=== PATIENT | female | born 2000 | race African-American/Black ===

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

== ENCOUNTER 2018-05-19 11:34 | Inpatient (IN) ==
[2018-05-19] MEDS ORDERED: LACTATED RINGERS 250 ML IV ONE (12:35)
[2018-05-19] MEDS ORDERED: ONDANSETRON 4 MG/2 ML VIAL IV PRN ×2 (12:35→14:59)
[2018-05-19] MEDS ORDERED: CITRIC ACID/SODIUM CITRATE 30 ML UDCUP PO ONE (12:39)
[2018-05-19 12:58] LABS: Basophils % 0.3 % (0.0-0.8); Eosinophils % 0.5 % (0.00-10.9); Hematocrit 27.6 VOL% (35.7-47.0); Hemoglobin 8.3 GM/DL (12.0-16.0); Immature Granulocytes Absolute 0.06 #; Lymphocytes # 1.4 10*3/uL (1.4-4.0); Lymphocytes % 22.9 % (21.3-54.2); Mean Corpuscular HGB Conc 30.1 GM/DL (32-36); Mean Corpuscular Hemoglobin 25 PG (27-34); Mean Corpuscular Volume 81.4 FL (87-102); Mean Platelet Volume 9.9 FL (9.6-12.0); Monocytes # 0.7 10*3/uL (0.11-0.8); Monocytes % 10.5 % (1.7-12.7); Neutrophils % 64.8 % (38.7-73.9); Platelet Count 240 T/CUMM (130-400); Red Blood Count 3.39 MC/CUMM (3.8-5.5); Red Cell Distribution Width 13.8 % (9.3-17.3); White Blood Count 6.2 T/CUMM (4-12)
[2018-05-19] MEDS ORDERED: FAMOTIDINE 20 MG/2 ML VIAL IV SCH (13:00)
[2018-05-19] MEDS ORDERED: LACTATED RINGERS 1,000 ML IV SCH (13:00)
[2018-05-19] MEDS ORDERED: ceFAZolin 2,000 MG in PREMIX 1 EACH IV ONE (13:02)
[2018-05-19] MEDS ORDERED: BUPIVACAINE SPINAL 0.75% 2 ML AMP SPINAL ONE (13:03)
[2018-05-19 13:15] LABS: Albumin 2.6 G/DL (3.4-5.0); Bilirubin,Total 0.6 MG/DL (0.2-1.0); Calcium 8.3 MG/DL (8.5-10.1); Potassium 3.9 MMOL/L (3.5-5.1); Total Protein 6.7 G/DL (6.4-8.3)
[2018-05-19] MEDS ORDERED: OXYTOCIN/LR 20 UNIT/1,000 ML BAG IV SCH (13:30)
[2018-05-19] MEDS ORDERED: OXYTOCIN 10 UNIT/ML VIAL IM ONE (13:30)
[2018-05-19 14:44] LABS: Cord Venous Blood HCO3 22.4 MMOL/L; Cord Venous Blood PCO2 42.5 MMHG
[2018-05-19 14:47] LABS: Cord Arterial Blood HCO3 21.2 MMOL/L
[2018-05-19] MEDS ORDERED: OXYTOCIN/LR 20 UNIT/1,000 ML BAG IV ONE (14:59)
[2018-05-19] MEDS ORDERED: ACETAMINOPHEN 325 MG TABLET PO PRN (14:59)
[2018-05-19] MEDS ORDERED: MAGNESIUM HYDROXIDE SUSP 30 ML UDCUP PO PRN (14:59)
[2018-05-19] MEDS ORDERED: SIMETHICONE CHEW 80 MG TABLET PO PRN (14:59)
[2018-05-19] MEDS ORDERED: RHO(D) IMMUNE GLOBULIN 300 MCG SYRINGE IM ONE (14:59)
[2018-05-19] MEDS ORDERED: MORPHINE 10 MG/10 ML VIAL ONE ×2 (15:07→15:12)
[2018-05-19] MEDS ORDERED: KETAMINE 500 MG/10 ML VIAL ONE (15:07)
[2018-05-19] MEDS ORDERED: PHENYLEPHRINE 1 MG/10 ML SYRINGE IV ONE (15:10)
[2018-05-19] MEDS ORDERED: PROPOFOL 200 MG/20 ML VIAL IV ONE (15:11)
[2018-05-19] MEDS ORDERED: fentaNYL 100 MCG/2 ML VIAL ONE (15:11)
[2018-05-19] MEDS ORDERED: SODIUM CHLORIDE 0.9% 1,000 ML IV PRN (15:19)
[2018-05-19 16:28] LABS: Apearance,Urine CLEAR (Clear); Bilirubin,Urine Negative (Negative); Blood, Urine Negative (Negative); Glucose,Urine (UA) Negative (Negative); Ketones,Urine 80 mg/dL (Negative); Mucus,Urine Occasional /LPF (Occasional); Nitrite,Urine Negative (Negative); Protein,Urine Negative; RBC,Urine 4 /HPF (0-4); Urine Color Yellow (Yellow); Urine Specific Gravity 1.021 (1.001-1.035); Urine Urobilinogen < 2.0 EU/DL (0.2-1.0); WBC,Urine 14 /HPF (0-6)
[2018-05-19 18:30] VITALS: BP 113/73
[2018-05-19] MEDS: LACTATED RINGERS 1,000 ML IV SCH (20:14)
[2018-05-19] MEDS: ceFAZolin 1,000 MG in SYRINGE 1 EACH IV SCH (21:27)
[2018-05-19] MEDS: DOCUSATE SODIUM 100 MG CAPSULE PO SCH (21:27)
[2018-05-19] MEDS: IBUPROFEN 800 MG TABLET PO PRN (22:31)
[2018-05-20] MEDS: LACTATED RINGERS 1,000 ML IV SCH (04:25)
[2018-05-20] MEDS: ceFAZolin 1,000 MG in SYRINGE 1 EACH IV SCH (05:36)
[2018-05-20 05:42] LABS: Basophils % 0.3 % (0.0-0.8); Eosinophils # 0.1 10*3/uL (0.0-0.87); Eosinophils % 0.5 % (0.00-10.9); Hematocrit 29.1 VOL% (35.7-47.0); Immature Granulocytes % 0.5 %; Immature Granulocytes Absolute 0.05 #; Lymphocytes # 1.2 10*3/uL (1.4-4.0); Lymphocytes % 11.9 % (21.3-54.2); Mean Corpuscular HGB Conc 30.9 GM/DL (32-36); Mean Corpuscular Hemoglobin 25 PG (27-34); Mean Corpuscular Volume 80.2 FL (87-102); Mean Platelet Volume 9.7 FL (9.6-12.0); Monocytes % 9.9 % (1.7-12.7); Neutrophils # 7.6 10*3/uL (1.4-7.4); Neutrophils % 76.9 % (38.7-73.9); Platelet Count 191 T/CUMM (130-400); Red Blood Count 3.63 MC/CUMM (3.8-5.5); Red Cell Distribution Width 13.9 % (9.3-17.3); White Blood Count 9.9 T/CUMM (4-12)
[2018-05-20] MEDS: DOCUSATE SODIUM 100 MG CAPSULE PO SCH ×2 (10:14→21:10)
[2018-05-20] MEDS: MULTIVITAMIN (PRENATAL) TABLET PO SCH (10:14)
[2018-05-20] MEDS: IBUPROFEN 800 MG TABLET PO PRN ×2 (10:14→17:42)
[2018-05-20 10:26] LABS: Basophils % 0.3 % (0.0-0.8); Eosinophils % 0.2 % (0.00-10.9); Hematocrit 29.5 VOL% (35.7-47.0); Hemoglobin 9.2 GM/DL (12.0-16.0); Immature Granulocytes % 0.5 %; Immature Granulocytes Absolute 0.05 #; Lymphocytes % 10.7 % (21.3-54.2); Mean Corpuscular HGB Conc 31.2 GM/DL (32-36); Mean Corpuscular Hemoglobin 25 PG (27-34); Mean Platelet Volume 9.4 FL (9.6-12.0); Monocytes # 0.7 10*3/uL (0.11-0.8); Monocytes % 7.5 % (1.7-12.7); Neutrophils # 7.4 10*3/uL (1.4-7.4); Neutrophils % 80.8 % (38.7-73.9); Platelet Count 221 T/CUMM (130-400); Red Blood Count 3.64 MC/CUMM (3.8-5.5); Red Cell Distribution Width 14.1 % (9.3-17.3); White Blood Count 9.2 T/CUMM (4-12)
[2018-05-20] MEDS: METOCLOPRAMIDE 10 MG TABLET PO SCH (21:10)
[2018-05-21] MEDS: METOCLOPRAMIDE 10 MG TABLET PO SCH ×3 (06:37→21:18)
[2018-05-21] MEDS: DOCUSATE SODIUM 100 MG CAPSULE PO SCH ×2 (08:31→21:18)
[2018-05-21] MEDS: IBUPROFEN 800 MG TABLET PO PRN ×2 (08:31→15:52)
[2018-05-21] MEDS: MULTIVITAMIN (PRENATAL) TABLET PO SCH (08:31)
[2018-05-21] MEDS ORDERED: BISACODYL 10 MG SUPP RECTAL PRN (14:24)
[2018-05-22] MEDS: IBUPROFEN 800 MG TABLET PO PRN (00:55)
[2018-05-22] MEDS ORDERED: MAGNESIUM CITRATE 300 ML BOTTLE PO ONE (06:10)
[2018-05-22] MEDS: METOCLOPRAMIDE 10 MG TABLET PO SCH (06:17)
[2018-05-22] MEDS: DOCUSATE SODIUM 100 MG CAPSULE PO SCH (10:00)
[2018-05-22] MEDS: MULTIVITAMIN (PRENATAL) TABLET PO SCH (10:00)
== END 2018-05-22 12:20 | disposition home or self-care (01) | DRG 540 ==
LOC: N.LDOUT 11:34 → N.LD 11:39
PROVIDERS: ADMIT Obstetrics & Gynecology; ATTEND Obstetrics & Gynecology
PROC: LDCSECT (ICD-10-PCS; 2018-05-19 13:00)